=== PATIENT | female | born 1940 | race Caucasian/White ===

== ENCOUNTER 2017-06-04 12:24 | Inpatient (IN) ==
[2017-06-04] MEDS ORDERED: FUROSEMIDE 100 MG/10 ML VIAL IV STA (14:24)
[2017-06-04] MEDS ORDERED: MORPHINE 2 MG/1 ML SYRINGE IV STA (14:24)
[2017-06-04] MEDS ORDERED: cefTRIAXone 1,000 MG in SODIUM CHLORIDE 0.9% 100 ML IV STA (14:24)
[2017-06-04] MEDS ORDERED: ASPIRIN 325 MG TABLET PO STA (14:24)
[2017-06-04] MEDS ORDERED: ONDANSETRON 4 MG/2 ML VIAL IV STA (14:24)
[2017-06-04] MEDS ORDERED: ALBUTEROL 2.5 MG/3 ML NEB RESP TX SCH (14:30)
[2017-06-04 14:34] LABS: Basophils % 0.2 % (0.0-0.8); Hematocrit 42.9 VOL% (35.7-47.0); Hemoglobin 14.2 GM/DL (12.0-16.0); Immature Granulocytes % 0.5 %; Immature Granulocytes Absolute 0.05 #; Lymphocytes # 0.5 10*3/uL (1.4-4.0); Lymphocytes % 5.2 % (21.3-54.2); Mean Corpuscular HGB Conc 33.1 GM/DL (32-36); Mean Corpuscular Hemoglobin 31 PG (27-34); Mean Corpuscular Volume 93.9 FL (87-102); Mean Platelet Volume 9.9 FL (9.6-12.0); Monocytes # 0.2 10*3/uL (0.11-0.8); Monocytes % 2.2 % (1.7-12.7); Neutrophils # 8.5 10*3/uL (1.4-7.4); Neutrophils % 91.9 % (38.7-73.9); Platelet Count 229 T/CUMM (130-400); Red Blood Count 4.57 MC/CUMM (3.8-5.5); Red Cell Distribution Width 13.6 % (9.3-17.3); White Blood Count 9.2 T/CUMM (4-12)
[2017-06-04 14:45] LABS: Alanine Aminotransferase 79 U/L (13-56); Albumin 3.2 G/DL (3.4-5.0); Alkaline Phosphatase 106 U/L (45-117); Aspartate Amino Transferase 94 U/L (0-37); Bilirubin,Total < 0.39 MG/DL (0.2-1.0); Blood Urea Nitrogen 14 MG/DL (7-18); Calcium 8.4 MG/DL (8.5-10.1); Glucose 189 MG/DL (74-106); Magnesium 2.4 MG/DL (1.8-2.4); Osmolality,Calculated 273.2 MOS/KG (273-304); Potassium 4.5 MMOL/L (3.5-5.1); Sodium 134 MMOL/L (136-145); Troponin I Only 0.018 NG/ML (0.00-0.045)
[2017-06-04 14:50] LABS: PT Patient Result 10.4 SECS
[2017-06-04] MEDS ORDERED: FUROSEMIDE 40 MG/4 ML VIAL IV SCH (15:00)
[2017-06-04 15:25] LABS: Lymphocytes 4 % (20-55); Platelet Estimate Normal; Segmented Neutrophils 95 % (50-85); Total Cells Counted 100
[2017-06-04] MEDS ORDERED: ASPIRIN 325 MG TABLET ONE (15:36)
[2017-06-04] MEDS ORDERED: FUROSEMIDE 40 MG/4 ML VIAL ONE (15:36)
[2017-06-04] MEDS ORDERED: FUROSEMIDE 20 MG/2 ML VIAL ONE (15:36)
[2017-06-04 16:26] LABS: Apearance,Urine CLEAR (Clear); Bilirubin,Urine Negative (Negative); Blood, Urine Small mg/dL (Negative); Glucose,Urine (UA) 50 mg/dL (Negative); Ketones,Urine 5 mg/dL (Negative); Mucus,Urine Occasional /LPF (Occasional); Nitrite,Urine Negative (Negative); Protein,Urine 100 MG/DL; RBC,Urine 1 /HPF (0-4); Squamous Epithelial Cell,Urine Occasional /HPF (0-10); Urine Color Yellow (Yellow); Urine Specific Gravity 1.015 (1.001-1.035); Urine Urobilinogen < 2.0 EU/DL (0.2-1.0); WBC,Urine 3 /HPF (0-6)
[2017-06-04 16:38] LABS: ABG Base Excess 1.6 MMOL/L (-2.5-2.5); ABG HCO3 25.7 MMOL/L (20-26); ABG Oxygen Saturation 93.8 % (95-100); ABG PCO2 53.8 MM HG (35-48); ABG PH 7.337 (7.35-7.45); ABG PO2 72.3 MM HG (80-95)
[2017-06-04] MEDS ORDERED: DEXTROSE 50% 25 GM/50 ML VIAL IV PRN ×2 (16:46→18:34)
[2017-06-04] MEDS ORDERED: GLUCAGON 1 MG VIAL IM PRN ×2 (16:46→18:34)
[2017-06-04] MEDS ORDERED: ALBUTEROL/IPRATROPIUM 3 ML NEB RESP TX PRN (16:46)
[2017-06-04] MEDS ORDERED: ONDANSETRON 4 MG/2 ML VIAL IV PRN (16:46)
[2017-06-04] MEDS ORDERED: ACETAMINOPHEN 325 MG TABLET PO PRN (16:46)
[2017-06-04] MEDS: ALBUTEROL/IPRATROPIUM 3 ML NEB RESP TX SCH (20:15)
[2017-06-04] MEDS: methylPREDNISolone SOD SUC 125 MG/2 ML VIAL IV SCH (20:31)
[2017-06-04] MEDS: AZITHROMYCIN INJ 500 MG in SODIUM CHLORIDE 0.9% 250 ML IV SCH (20:31)
[2017-06-04] MEDS: ENOXAPARIN 40 MG/0.4 ML SYRINGE SUBCUT SCH (20:32)
[2017-06-04] MEDS: risperiDONE 1 MG TABLET PO SCH (20:32)
[2017-06-04] MEDS: NICOTINE 21 MG/24 HR PATCH TRANSDERM SCH (20:32)
[2017-06-04] MEDS: ROSUVASTATIN 10 MG TABLET PO SCH (20:32)
[2017-06-04] MEDS ORDERED: FLUTICASONE/SALMETEROL 250-50 DISKUS 14 DOSE INH SCH (21:00)
[2017-06-04] MEDS: FAMOTIDINE 20 MG TABLET PO SCH (22:55)
[2017-06-04] MEDS: OSELTAMIVIR 75 MG CAPSULE PO SCH (22:55)
[2017-06-05] MEDS: ALBUTEROL/IPRATROPIUM 3 ML NEB RESP TX SCH ×5 (00:46→23:57)
[2017-06-05] MEDS: FUROSEMIDE 40 MG/4 ML VIAL IV SCH ×2 (03:45→15:06)
[2017-06-05] MEDS: methylPREDNISolone SOD SUC 125 MG/2 ML VIAL IV SCH ×3 (05:17→21:09)
[2017-06-05 06:46] LABS: Basophils % 0.1 % (0.0-0.8); Hematocrit 42.4 VOL% (35.7-47.0); Hemoglobin 13.7 GM/DL (12.0-16.0); Immature Granulocytes % 0.6 %; Immature Granulocytes Absolute 0.06 #; Lymphocytes # 0.8 10*3/uL (1.4-4.0); Lymphocytes % 7.9 % (21.3-54.2); Mean Corpuscular HGB Conc 32.3 GM/DL (32-36); Mean Corpuscular Hemoglobin 30 PG (27-34); Monocytes # 0.5 10*3/uL (0.11-0.8); Monocytes % 4.9 % (1.7-12.7); Neutrophils # 8.3 10*3/uL (1.4-7.4); Neutrophils % 86.5 % (38.7-73.9); Platelet Count 237 T/CUMM (130-400); Red Blood Count 4.51 MC/CUMM (3.8-5.5); Red Cell Distribution Width 13.8 % (9.3-17.3); White Blood Count 9.6 T/CUMM (4-12)
[2017-06-05 07:17] LABS: Albumin 3.2 G/DL (3.4-5.0); Bilirubin,Total 0.5 MG/DL (0.2-1.0); Calcium 8.5 MG/DL (8.5-10.1); Potassium 3.9 MMOL/L (3.5-5.1); Total Protein 6.9 G/DL (6.4-8.3)
[2017-06-05] MEDS ORDERED: Fluticasone/Vilanterol [Breo Ellipta 100-25 Mcg Inh] 1 PUFF INH SCH (09:00)
[2017-06-05] MEDS: INSULIN LISPRO 100 UNIT/ML SUBCUT SCH ×4 (10:03→21:08)
[2017-06-05] MEDS: POTASSIUM CHLORIDE 10 MEQ TABLET PO SCH (10:04)
[2017-06-05] MEDS: ATENOLOL 25 MG TABLET PO SCH (10:04)
[2017-06-05] MEDS: NICOTINE 21 MG/24 HR PATCH TRANSDERM SCH (10:04)
[2017-06-05] MEDS: CLOPIDOGREL 75 MG TABLET PO SCH (10:04)
[2017-06-05] MEDS: FAMOTIDINE 20 MG TABLET PO SCH ×2 (10:05→21:07)
[2017-06-05] MEDS: OSELTAMIVIR 75 MG CAPSULE PO SCH ×2 (10:05→21:07)
[2017-06-05] MEDS: cefTRIAXone 1,000 MG in SYRINGE 1 EACH IV SCH (10:05)
[2017-06-05] MEDS: ROSUVASTATIN 10 MG TABLET PO SCH (21:06)
[2017-06-05] MEDS: risperiDONE 1 MG TABLET PO SCH (21:07)
[2017-06-05] MEDS: ENOXAPARIN 40 MG/0.4 ML SYRINGE SUBCUT SCH (21:08)
[2017-06-05] MEDS: CITALOPRAM 20 MG TABLET PO SCH (21:08)
[2017-06-05] MEDS: traZODone 50 MG TABLET PO SCH (21:08)
[2017-06-05] MEDS: AZITHROMYCIN INJ 500 MG in SODIUM CHLORIDE 0.9% 250 ML IV SCH (21:16)
[2017-06-06] MEDS: methylPREDNISolone SOD SUC 125 MG/2 ML VIAL IV SCH ×3 (03:13→21:18)
[2017-06-06] MEDS: FUROSEMIDE 40 MG/4 ML VIAL IV SCH ×2 (03:15→14:09)
[2017-06-06] MEDS ORDERED: cloNIDine 0.1 MG TABLET PO PRN (03:34)
[2017-06-06] MEDS: MORPHINE 2 MG/1 ML SYRINGE IV PRN (03:43)
[2017-06-06] MEDS: ALBUTEROL/IPRATROPIUM 3 ML NEB RESP TX SCH ×3 (08:07→21:09)
[2017-06-06] MEDS: INSULIN LISPRO 100 UNIT/ML SUBCUT SCH ×4 (08:55→21:16)
[2017-06-06] MEDS: cefTRIAXone 1,000 MG in SYRINGE 1 EACH IV SCH (08:56)
[2017-06-06] MEDS: CLOPIDOGREL 75 MG TABLET PO SCH (08:56)
[2017-06-06] MEDS: NICOTINE 21 MG/24 HR PATCH TRANSDERM SCH (08:56)
[2017-06-06] MEDS: POTASSIUM CHLORIDE 10 MEQ TABLET PO SCH (08:56)
[2017-06-06] MEDS: FAMOTIDINE 20 MG TABLET PO SCH ×2 (08:56→21:19)
[2017-06-06] MEDS: ATENOLOL 25 MG TABLET PO SCH (08:56)
[2017-06-06] MEDS: OSELTAMIVIR 75 MG CAPSULE PO SCH ×2 (09:01→21:19)
[2017-06-06] MEDS: ENOXAPARIN 40 MG/0.4 ML SYRINGE SUBCUT SCH (21:17)
[2017-06-06] MEDS: AZITHROMYCIN INJ 500 MG in SODIUM CHLORIDE 0.9% 250 ML IV SCH (21:18)
[2017-06-06] MEDS: CITALOPRAM 20 MG TABLET PO SCH (21:19)
[2017-06-06] MEDS: traZODone 50 MG TABLET PO SCH (21:19)
[2017-06-06] MEDS: risperiDONE 1 MG TABLET PO SCH (21:19)
[2017-06-06] MEDS: ROSUVASTATIN 10 MG TABLET PO SCH (21:19)
[2017-06-07] MEDS: ALBUTEROL/IPRATROPIUM 3 ML NEB RESP TX SCH ×7 (00:30→23:16)
[2017-06-07] MEDS: methylPREDNISolone SOD SUC 125 MG/2 ML VIAL IV SCH ×3 (04:39→20:42)
[2017-06-07] MEDS: FUROSEMIDE 40 MG/4 ML VIAL IV SCH ×2 (04:39→16:29)
[2017-06-07] MEDS: cefTRIAXone 1,000 MG in SYRINGE 1 EACH IV SCH (08:56)
[2017-06-07] MEDS: MORPHINE 2 MG/1 ML SYRINGE IV PRN (08:57)
[2017-06-07] MEDS: CLOPIDOGREL 75 MG TABLET PO SCH (08:57)
[2017-06-07] MEDS: POTASSIUM CHLORIDE 10 MEQ TABLET PO SCH (08:57)
[2017-06-07] MEDS: INSULIN LISPRO 100 UNIT/ML SUBCUT SCH ×4 (08:57→20:58)
[2017-06-07] MEDS: ATENOLOL 25 MG TABLET PO SCH (08:57)
[2017-06-07] MEDS: FAMOTIDINE 20 MG TABLET PO SCH ×2 (08:58→20:45)
[2017-06-07] MEDS: NICOTINE 21 MG/24 HR PATCH TRANSDERM SCH (08:58)
[2017-06-07] MEDS: OSELTAMIVIR 75 MG CAPSULE PO SCH ×2 (09:03→20:45)
[2017-06-07] MEDS ORDERED: BISACODYL 5 MG TABLET PO STA (09:30)
[2017-06-07 09:58] LABS: Basophils % 0.2 % (0.0-0.8); Hematocrit 45.1 VOL% (35.7-47.0); Hemoglobin 14.4 GM/DL (12.0-16.0); Immature Granulocytes % 0.9 %; Immature Granulocytes Absolute 0.09 #; Lymphocytes # 0.7 10*3/uL (1.4-4.0); Mean Corpuscular HGB Conc 31.9 GM/DL (32-36); Mean Corpuscular Hemoglobin 31 PG (27-34); Mean Corpuscular Volume 96.6 FL (87-102); Mean Platelet Volume 9.6 FL (9.6-12.0); Monocytes # 0.4 10*3/uL (0.11-0.8); Monocytes % 4.2 % (1.7-12.7); Neutrophils # 8.7 10*3/uL (1.4-7.4); Neutrophils % 87.7 % (38.7-73.9); Platelet Count 211 T/CUMM (130-400); Red Blood Count 4.67 MC/CUMM (3.8-5.5); Red Cell Distribution Width 13.6 % (9.3-17.3); White Blood Count 9.9 T/CUMM (4-12)
[2017-06-07 10:37] LABS: Troponin I Only < 0.015 NG/ML (0.00-0.045)
[2017-06-07 10:38] LABS: Calcium 8.1 MG/DL (8.5-10.1); Magnesium 2.6 MG/DL (1.8-2.4); Osmolality,Calculated 286.8 MOS/KG (273-304); Potassium 4.2 MMOL/L (3.5-5.1)
[2017-06-07] MEDS: AZITHROMYCIN INJ 500 MG in SODIUM CHLORIDE 0.9% 250 ML IV SCH (20:42)
[2017-06-07] MEDS: risperiDONE 1 MG TABLET PO SCH (20:45)
[2017-06-07] MEDS: CITALOPRAM 20 MG TABLET PO SCH (20:45)
[2017-06-07] MEDS: ENOXAPARIN 40 MG/0.4 ML SYRINGE SUBCUT SCH (20:46)
[2017-06-07] MEDS: ROSUVASTATIN 10 MG TABLET PO SCH (20:46)
[2017-06-07] MEDS: traZODone 50 MG TABLET PO SCH (20:46)
[2017-06-08] MEDS: ALBUTEROL/IPRATROPIUM 3 ML NEB RESP TX SCH ×6 (03:07→23:50)
[2017-06-08] MEDS: FUROSEMIDE 40 MG/4 ML VIAL IV SCH ×2 (03:30→14:38)
[2017-06-08] MEDS: methylPREDNISolone SOD SUC 125 MG/2 ML VIAL IV SCH ×3 (03:30→21:00)
[2017-06-08] MEDS: NICOTINE 21 MG/24 HR PATCH TRANSDERM SCH (08:48)
[2017-06-08] MEDS: INSULIN LISPRO 100 UNIT/ML SUBCUT SCH ×4 (08:49→20:59)
[2017-06-08] MEDS: OSELTAMIVIR 75 MG CAPSULE PO SCH ×2 (08:49→22:36)
[2017-06-08] MEDS: CLOPIDOGREL 75 MG TABLET PO SCH (08:49)
[2017-06-08] MEDS: FAMOTIDINE 20 MG TABLET PO SCH ×2 (08:49→20:59)
[2017-06-08] MEDS: POTASSIUM CHLORIDE 10 MEQ TABLET PO SCH (08:49)
[2017-06-08] MEDS: ATENOLOL 25 MG TABLET PO SCH (08:49)
[2017-06-08] MEDS: cefTRIAXone 1,000 MG in SYRINGE 1 EACH IV SCH (09:25)
[2017-06-08] MEDS: DORNASE ALFA 2.5 MG/2.5 ML VIAL RESP TX SCH ×2 (10:44→19:39)
[2017-06-08] MEDS: ROSUVASTATIN 10 MG TABLET PO SCH (20:58)
[2017-06-08] MEDS: risperiDONE 1 MG TABLET PO SCH (20:59)
[2017-06-08] MEDS: CITALOPRAM 20 MG TABLET PO SCH (20:59)
[2017-06-08] MEDS: traZODone 50 MG TABLET PO SCH (20:59)
[2017-06-08] MEDS: ENOXAPARIN 40 MG/0.4 ML SYRINGE SUBCUT SCH (21:00)
[2017-06-08] MEDS: AZITHROMYCIN INJ 500 MG in SODIUM CHLORIDE 0.9% 250 ML IV SCH (21:10)
[2017-06-09] MEDS: FUROSEMIDE 40 MG/4 ML VIAL IV SCH (02:34)
[2017-06-09] MEDS: ALBUTEROL/IPRATROPIUM 3 ML NEB RESP TX SCH ×6 (03:12→23:50)
[2017-06-09 03:40] LABS: Basophils % 0.3 % (0.0-0.8); Hematocrit 47.4 VOL% (35.7-47.0); Hemoglobin 15.2 GM/DL (12.0-16.0); Immature Granulocytes % 1.8 %; Immature Granulocytes Absolute 0.14 #; Lymphocytes # 1.2 10*3/uL (1.4-4.0); Lymphocytes % 16.4 % (21.3-54.2); Mean Corpuscular HGB Conc 32.1 GM/DL (32-36); Mean Corpuscular Hemoglobin 30 PG (27-34); Mean Corpuscular Volume 94.2 FL (87-102); Mean Platelet Volume 9.9 FL (9.6-12.0); Monocytes # 0.3 10*3/uL (0.11-0.8); Monocytes % 4.5 % (1.7-12.7); Neutrophils # 5.8 10*3/uL (1.4-7.4); Platelet Count 229 T/CUMM (130-400); Red Blood Count 5.03 MC/CUMM (3.8-5.5); Red Cell Distribution Width 13.2 % (9.3-17.3); White Blood Count 7.6 T/CUMM (4-12)
[2017-06-09 04:24] LABS: Calcium 8.1 MG/DL (8.5-10.1); Osmolality,Calculated 286.7 MOS/KG (273-304); Potassium 3.8 MMOL/L (3.5-5.1)
[2017-06-09 05:04] LABS: Lymphocytes 14 % (20-55); Platelet Estimate Normal; Segmented Neutrophils 84 % (50-85); Total Cells Counted 100
[2017-06-09] MEDS: methylPREDNISolone SOD SUC 125 MG/2 ML VIAL IV SCH (05:18)
[2017-06-09] MEDS: DORNASE ALFA 2.5 MG/2.5 ML VIAL RESP TX SCH ×2 (07:04→19:01)
[2017-06-09] MEDS: FAMOTIDINE 20 MG TABLET PO SCH ×2 (09:20→21:12)
[2017-06-09] MEDS: ATENOLOL 25 MG TABLET PO SCH (09:20)
[2017-06-09] MEDS: NICOTINE 21 MG/24 HR PATCH TRANSDERM SCH (09:20)
[2017-06-09] MEDS: CLOPIDOGREL 75 MG TABLET PO SCH (09:20)
[2017-06-09] MEDS: POTASSIUM CHLORIDE 10 MEQ TABLET PO SCH (09:20)
[2017-06-09] MEDS: INSULIN LISPRO 100 UNIT/ML SUBCUT SCH ×3 (09:20→16:32)
[2017-06-09] MEDS: OSELTAMIVIR 75 MG CAPSULE PO SCH ×2 (09:21→21:12)
[2017-06-09] MEDS: cefTRIAXone 1,000 MG in SYRINGE 1 EACH IV SCH (09:21)
[2017-06-09] MEDS ORDERED: methylPREDNISolone SOD SUC 125 MG/2 ML VIAL IV SCH (10:00)
[2017-06-09] MEDS: methylPREDNISolone SOD SUC 40 MG/1 ML VIAL IV SCH (17:45)
[2017-06-09] MEDS: traZODone 50 MG TABLET PO SCH (21:12)
[2017-06-09] MEDS: CITALOPRAM 20 MG TABLET PO SCH (21:12)
[2017-06-09] MEDS: risperiDONE 1 MG TABLET PO SCH (21:12)
[2017-06-09] MEDS: ROSUVASTATIN 10 MG TABLET PO SCH (21:12)
[2017-06-09] MEDS: AZITHROMYCIN INJ 500 MG in SODIUM CHLORIDE 0.9% 250 ML IV SCH (21:13)
[2017-06-09] MEDS: ENOXAPARIN 40 MG/0.4 ML SYRINGE SUBCUT SCH (21:15)
[2017-06-10] MEDS: INSULIN LISPRO 100 UNIT/ML SUBCUT SCH ×5 (00:47→20:56)
[2017-06-10] MEDS: ALBUTEROL/IPRATROPIUM 3 ML NEB RESP TX SCH ×6 (03:53→23:31)
[2017-06-10] MEDS: methylPREDNISolone SOD SUC 40 MG/1 ML VIAL IV SCH ×2 (05:32→16:54)
[2017-06-10] MEDS: DORNASE ALFA 2.5 MG/2.5 ML VIAL RESP TX SCH ×2 (07:41→19:54)
[2017-06-10] MEDS: cefTRIAXone 1,000 MG in SYRINGE 1 EACH IV SCH (09:48)
[2017-06-10] MEDS: POTASSIUM CHLORIDE 10 MEQ TABLET PO SCH (09:49)
[2017-06-10] MEDS: FUROSEMIDE 20 MG TABLET PO SCH (09:49)
[2017-06-10] MEDS: CLOPIDOGREL 75 MG TABLET PO SCH (09:49)
[2017-06-10] MEDS: ATENOLOL 25 MG TABLET PO SCH (09:49)
[2017-06-10] MEDS: NICOTINE 21 MG/24 HR PATCH TRANSDERM SCH (09:50)
[2017-06-10] MEDS: FAMOTIDINE 20 MG TABLET PO SCH ×2 (09:50→20:55)
[2017-06-10] MEDS: traZODone 50 MG TABLET PO SCH (20:55)
[2017-06-10] MEDS: CITALOPRAM 20 MG TABLET PO SCH (20:55)
[2017-06-10] MEDS: ROSUVASTATIN 10 MG TABLET PO SCH (20:55)
[2017-06-10] MEDS: risperiDONE 1 MG TABLET PO SCH (20:55)
[2017-06-10] MEDS: ENOXAPARIN 40 MG/0.4 ML SYRINGE SUBCUT SCH (20:56)
[2017-06-10] MEDS ORDERED: AZITHROMYCIN INJ 500 MG in SODIUM CHLORIDE 0.45% 250 ML IV SCH (21:00)
[2017-06-11] MEDS: ALBUTEROL/IPRATROPIUM 3 ML NEB RESP TX SCH ×6 (03:18→23:34)
[2017-06-11] MEDS: methylPREDNISolone SOD SUC 40 MG/1 ML VIAL IV SCH (06:10)
[2017-06-11] MEDS: DORNASE ALFA 2.5 MG/2.5 ML VIAL RESP TX SCH (08:09)
[2017-06-11] MEDS: INSULIN LISPRO 100 UNIT/ML SUBCUT SCH ×4 (10:16→22:33)
[2017-06-11] MEDS: FUROSEMIDE 20 MG TABLET PO SCH (10:16)
[2017-06-11] MEDS: CLOPIDOGREL 75 MG TABLET PO SCH (10:16)
[2017-06-11] MEDS: ATENOLOL 25 MG TABLET PO SCH (10:17)
[2017-06-11] MEDS: POTASSIUM CHLORIDE 10 MEQ TABLET PO SCH (10:17)
[2017-06-11] MEDS: cefTRIAXone 1,000 MG in SYRINGE 1 EACH IV SCH (10:17)
[2017-06-11] MEDS: NICOTINE 21 MG/24 HR PATCH TRANSDERM SCH (10:17)
[2017-06-11] MEDS: FAMOTIDINE 20 MG TABLET PO SCH ×2 (10:17→22:21)
[2017-06-11] MEDS: predniSONE 20 MG TABLET PO SCH (14:38)
[2017-06-11] MEDS: CITALOPRAM 20 MG TABLET PO SCH (22:20)
[2017-06-11] MEDS: CEFUROXIME 500 MG TABLET PO SCH (22:20)
[2017-06-11] MEDS: ROSUVASTATIN 10 MG TABLET PO SCH (22:21)
[2017-06-11] MEDS: traZODone 50 MG TABLET PO SCH (22:21)
[2017-06-11] MEDS: risperiDONE 1 MG TABLET PO SCH (22:21)
[2017-06-11] MEDS: ENOXAPARIN 40 MG/0.4 ML SYRINGE SUBCUT SCH (22:22)
[2017-06-12] MEDS: ALBUTEROL/IPRATROPIUM 3 ML NEB RESP TX SCH ×5 (02:32→20:53)
[2017-06-12 07:41] LABS: Calcium 8.3 MG/DL (8.5-10.1); Osmolality,Calculated 282.4 MOS/KG (273-304); Potassium 3.5 MMOL/L (3.5-5.1)
[2017-06-12] MEDS: NICOTINE 21 MG/24 HR PATCH TRANSDERM SCH (09:02)
[2017-06-12] MEDS: INSULIN LISPRO 100 UNIT/ML SUBCUT SCH ×4 (09:02→21:00)
[2017-06-12] MEDS: CLOPIDOGREL 75 MG TABLET PO SCH (09:03)
[2017-06-12] MEDS: FAMOTIDINE 20 MG TABLET PO SCH ×2 (09:03→20:59)
[2017-06-12] MEDS: predniSONE 20 MG TABLET PO SCH (09:03)
[2017-06-12] MEDS: FUROSEMIDE 20 MG TABLET PO SCH (09:03)
[2017-06-12] MEDS: POTASSIUM CHLORIDE 10 MEQ TABLET PO SCH (09:04)
[2017-06-12] MEDS: CEFUROXIME 500 MG TABLET PO SCH ×2 (09:04→20:59)
[2017-06-12] MEDS: ATENOLOL 25 MG TABLET PO SCH (09:04)
[2017-06-12] MEDS: risperiDONE 1 MG TABLET PO SCH (20:59)
[2017-06-12] MEDS: ROSUVASTATIN 10 MG TABLET PO SCH (20:59)
[2017-06-12] MEDS: traZODone 50 MG TABLET PO SCH (20:59)
[2017-06-12] MEDS: ENOXAPARIN 40 MG/0.4 ML SYRINGE SUBCUT SCH (20:59)
[2017-06-12] MEDS: CITALOPRAM 20 MG TABLET PO SCH (20:59)
[2017-06-13] MEDS: ALBUTEROL/IPRATROPIUM 3 ML NEB RESP TX SCH ×5 (01:47→15:05)
[2017-06-13] MEDS: CLOPIDOGREL 75 MG TABLET PO SCH (08:25)
[2017-06-13] MEDS: FUROSEMIDE 20 MG TABLET PO SCH (08:25)
[2017-06-13] MEDS: ATENOLOL 25 MG TABLET PO SCH (08:25)
[2017-06-13] MEDS: predniSONE 20 MG TABLET PO SCH (08:25)
[2017-06-13] MEDS: CEFUROXIME 500 MG TABLET PO SCH (08:25)
[2017-06-13] MEDS: POTASSIUM CHLORIDE 10 MEQ TABLET PO SCH (08:25)
[2017-06-13] MEDS: FAMOTIDINE 20 MG TABLET PO SCH (08:25)
[2017-06-13] MEDS: NICOTINE 21 MG/24 HR PATCH TRANSDERM SCH (08:26)
[2017-06-13] MEDS: INSULIN LISPRO 100 UNIT/ML SUBCUT SCH ×2 (08:26→13:11)
[2017-06-13 14:06] VITALS: BP 122/75
== END 2017-06-13 16:26 | disposition swing bed (61) | DRG 291 ==
LOC: EDBD → EDUNIT# → N.ED 12:24 → N.EDINP 15:04 → SUATTDRO 15:04 → N.5E 18:18
PROVIDERS: ADMIT Internal Medicine; ATTEND Internal Medicine